=== PATIENT | female | born 1975 | race Caucasian/White ===

== ENCOUNTER 2020-04-10 23:08 | Emergency (ER) | payer OTHER ==
[2020-04-10] MEDS ORDERED: EPINEPHrine 1 MG/ML SDV ONE ×3 (23:09→23:57)
[2020-04-10] MEDS ORDERED: EPINEPHrine 1 MG/ML 30 ML MDV ONE (23:45)
[2020-04-11] MEDS ORDERED: Ondansetron 4 MG/2 ML SDV IVPUSH ONE (00:17)
[2020-04-11] MEDS ORDERED: Tranexamic Acid 1,000 MG in Sodium Chloride 0.9% 50 ML IV ONE (00:17)
[2020-04-11] MEDS ORDERED: LORazepam 2 MG/ML SDV IVPUSH ONE (00:17)
--- NOTE | 2020-04-11 01:08 | EDM.PDOC ---
ED HPI GENERAL MEDICAL PROBLEM - General Chief Complaint: ENT Problem Stated Complaint: BLOODY NOSE Time Seen by Provider: 04/10/20 23:30 Source of Information: Reports: Patient History Limitations: Reports: No Limitations - History of Present Illness INITIAL COMMENTS - FREE TEXT/NARRATIVE: Patient presented to the ED because of bilateral epistaxis worse on the left than on the right. She tried to apply pressure but didn't provide relief. She is not on any NSAIDS or blood thinner. No recent cough/cold symptoms,fever,chills. - Related Data Allergies Allergy/AdvReac Type Severity Reaction Status Date / Time No Known Allergies Allergy Verified 04/10/20 23:13 Home Meds: Home Meds ALPRAZolam [Alprazolam] 0.5 mg PO DAILY PRN 04/10/20 [History] Cyclobenzaprine [Flexeril] 10 mg PO BEDTIME 04/10/20 [History] Esomeprazole [NexIUM] 40 mg PO DAILY 04/10/20 [History] Gabapentin [Neurontin] 600 mg PO TID PRN 04/10/20 [History] Propranolol [Inderal] 40 mg PO BID 04/10/20 [History] Sertraline HCl 100 mg PO DAILY 04/10/20 [History] Past Medical History Cardiovascular History: Reports: Other (See Below) Other Cardiovascular History: Patient has an external heart holster on monitoring her heart to gather more information about a recient flutter. Neurological History: Reports: Migraines Psychiatric History: Reports: Anxiety - Infectious Disease History Infectious Disease History: Reports: Chicken Pox Social & Family History - Family History Family Medical History: Noncontributory - Tobacco Use Smoking Status *Q: Never Smoker - Caffeine Use Caffeine Use: Reports: Coffee - Alcohol Use Days Per Week of Alcohol Use: 1 Number of Drinks Per Day: 3 Total Drinks Per Week: 3 - Recreational Drug Use Recreational Drug Use: No ED ROS ENT - Review of Systems Review Of Systems: See Below Constitutional: Reports: No Symptoms HEENT: Reports: Nosebleed Respiratory: Reports: No Symptoms Cardiovascular: Reports: No Symptoms Endocrine: Reports: No Symptoms GI/Abdominal: Reports: No Symptoms : Reports: No Symptoms Musculoskeletal: Reports: No Symptoms Skin: Reports: No Symptoms Neurological: Reports: No Symptoms Psychiatric: Reports: No Symptoms Hematologic/Lymphatic: Reports: No Symptoms ED EXAM, ENT - Physical Exam Exam: See Below Exam Limited By: No Limitations General Appearance: Alert, WD/WN, No Apparent Distress Eye Exam: Bilateral Eye: PERRL Ears: Normal External Exam, Normal Canal, Hearing Grossly Normal Nose: Normal Inspection, Normal Mucousa, No Blood Mouth/Throat: Normal Inspection, Normal Gums, Normal Lips, Normal Oropharynx Head: Atraumatic, Normocephalic Neck: Normal Inspection, Supple, Non-Tender, Full Range of Motion Respiratory/Chest: No Respiratory Distress, Lungs Clear, Normal Breath Sounds, No Accessory Muscle Use, Chest Non-Tender Cardiovascular: Normal Peripheral Pulses, Regular Rate, Rhythm, No Edema, No Gallop GI/Abdominal: Normal Bowel Sounds, Soft, Non-Tender, No Organomegaly Back: Normal Inspection, Full Range of Motion Course - Vital Signs Text/Narrative:: Rhino sebastien was applied on the left nosetril which didn;t help Cotton balls soaked with epi with mild improvement Tranexamic acid 1 gm IV and cotton balls soaked with TXA then inserted into the left nosetril did stop the bleeding Ativan 1 mg IV x1 for anxiety Zofran 4 mg IV x1 Visatril 50 mg IM x 1 Last Recorded V/S: Last Vital Signs Temp 36.4 C 04/10/20 23:28 Pulse 109 H 04/11/20 06:51 Resp 14 04/11/20 06:51 BP 117/74 04/11/20 06:51 Pulse Ox 98 04/11/20 06:51 - Orders/Labs/Meds Labs: Laboratory Tests 04/11/20 Range/Units 01:10 WBC 8.3 (4.5-12.0) X10-3/uL RBC 4.17 (3.23-5.20) x10(6)uL Hgb 12.6 (11.5-15.5) g/dL Hct 38.0 (30.0-51.3) % MCV 91.1 (80-96) fL MCH 30.2 (27.7-33.6) pg MCHC 33.2 (32.2-35.4) g/dL RDW 13.1 (11.5-15.5) % Plt Count 262 (125-369) X10(3)uL MPV 7.6 (7.4-10.4) fL Neut % (Auto) 63.9 (46-82) % Lymph % (Auto) 28.9 (13-37) % [place] % (Auto) 5.8 (4-12) % Eos % (Auto) 1 (1.0-5.0) % Baso % (Auto) 0 (0-2) % Neut # (Auto) 5.3 (1.6-8.3) # Lymph # (Auto) 2.4 (0.6-5.0) # [place] # (Auto) 0.5 (0.0-1.3) # Eos # (Auto) 0.1 (0.0-0.8) # Baso # (Auto) 0.0 (0.0-0.2) # Meds: Medications Discontinued Medications Generic Name Dose Route Start Last Admin Trade Name Porfirioq PRN Reason Stop Dose Admin Epinephrine HCl Confirm 04/10/20 23:55 04/11/20 01:09 Adrenalin Administered 04/10/20 23:56 Not Given Dose 1 mg .ROUTE .STK-MED ONE Epinephrine HCl Confirm 04/10/20 23:57 04/11/20 01:09 Adrenalin Administered 04/10/20 23:58 Not Given Dose 2 mg .ROUTE .STK-MED ONE Epinephrine HCl 3 mg 04/11/20 23:45 Adrenalin .XX 04/11/20 23:46 NOW ONE Epinephrine HCl 3 mg 04/10/20 23:45 04/10/20 23:45 Adrenalin .XX 04/10/20 23:46 3 mg NOW ONE Administration Epinephrine HCl 3 mg 04/10/20 23:09 Adrenalin .XX 04/10/20 23:10 .STK-MED ONE Hydroxyzine HCl 50 mg 04/11/20 01:11 04/11/20 01:16 Vistaril IM 04/11/20 01:12 50 mg ONETIME ONE Administration Tranexamic Acid 1,000 mg/ 60 mls @ 200 mls/hr 04/11/20 00:17 04/11/20 00:43 Sodium Chloride IV 04/11/20 00:34 200 mls/hr ONETIME ONE Administration Tranexamic Acid 500 mg/ Sodium 55 mls @ 200 mls/hr 04/11/20 00:24 04/11/20 01:11 Chloride IV 04/11/20 00:40 200 mls/hr ONETIME ONE Administration Sodium Chloride 1,000 mls @ 250 mls/hr 04/11/20 02:00 Normal Saline IV ASDIRECTED KRYS Lorazepam 1 mg 04/11/20 00:17 04/11/20 00:22 Ativan IVPUSH 04/11/20 00:18 1 mg ONETIME ONE Administration Ondansetron HCl 4 mg 04/11/20 00:17 04/11/20 00:20 Zofran IVPUSH 04/11/20 00:18 4 mg ONETIME ONE Administration Sodium Chloride 10 ml 04/11/20 01:16 04/11/20 00:22 Saline Flush FLUSH 10 ml ASDIRECTED PRN Administration flush Departure - Departure Time of Disposition: 07:00 Disposition: Home, Self-Care 01 Condition: Good Clinical Impression: Epistaxis, Anxiety reaction - Discharge Information Instructions: Nosebleed, Adult Referrals: Ana Meier A AND P TECHNICIAN [Primary Care Provider] - Forms: ED Department Discharge Additional Instructions: please read discharge instructions on nasal bleed do not blow your nose when you are about to sneeze, open your mouth no aspirin,aleve,ibuprofen for 1 week follow up with the ENT this week Sepsis Event Note (ED) - Evaluation Sepsis Screening Result: No Definite Risk - Focused Exam Vital Signs: Vital Signs Temp Pulse Resp BP Pulse Ox 04/11/20 06:51 109 H 14 117/74 98 04/11/20 01:04 96 16 123/90 100 04/10/20 23:28 36.4 C 100 16 123/86 98
[2020-04-11] MEDS ORDERED: hydrOXYzine HCl 50 MG/ML SDV IM ONE (01:11)
[2020-04-11] MEDS ORDERED: Sodium Chloride 0.9% 10 ML Syringe FLUSH PRN (01:16)
[2020-04-11] MEDS ORDERED: Sodium Chloride 0.9% 1,000 ML IV SCH (02:00)
[2020-04-11] MEDS ORDERED: EPINEPHrine 1 MG/ML 30 ML MDV ONE (23:45)
== END 2020-04-11 07:14 | disposition home or self-care (01) ==
LOC: FB.ED 23:08
DX: R04.0 Epistaxis (principal); F41.1 Generalized anxiety disorder; G43.909 Migraine, unspecified, not intractable, without status migrainosus; Z79.899 Other long term (current) drug therapy
CPT/HCPCS: 30901; 36415; 85025; 96365; 96366; 96372; 96375; 99283; J0171; J2060; J2405; J3410; J7050